=== PATIENT | female | born 1965 | race American Indian/Alaskan Native ===

== ENCOUNTER 2020-10-11 19:23 | Emergency (ER) | payer OTHER ==
[2020-10-11 20:11] VITALS: BP 161/95
--- NOTE | 2020-10-11 20:34 | Emergency Department Report ---
ED ENT HPI - General Chief complaint: Earache Stated complaint: LT EAR/NECK PAIN Time Seen by Provider: 10/11/20 20:29 Source: patient Mode of arrival: Ambulatory Limitations: No Limitations - History of Present Illness Initial comments: Patient is a 55-year-old female presents emergency room with onset of left-sided ear pain that began 2 days ago. She states it is draining and has itching and pain. She states that she went to urgent care 2 days ago and was diagnosed with otitis externa and placed on ofloxacin. She states that she has been using the drops as prescribed with no relief of her symptoms. She denies any recent swimming. She denies anything getting into the ear. She denies any fever, nausea, vomiting, diarrhea, cough, shortness of breath, sore throat. Past medical history of hypertension. Allergy to erythromycin. - Related Data Previous Rx's Medication Instructions Recorded Last Taken Type Amoxicillin/Potassium Clav 1 each PO BID 10 Days #20 tablet 10/11/20 Unknown Rx [Augmentin 875-125 Tablet] Ciprofloxacin HCl/Dexameth 3 drops AU BID 10 Days #1 bottle 10/11/20 Unknown Rx [Ciprodex Otic Suspension] Allergies Allergy/AdvReac Type Severity Reaction Status Date / Time erythromycin base Allergy Anaphylaxis Verified 10/11/20 20:08 ED Dental HPI - General Chief complaint: Earache Stated complaint: LT EAR/NECK PAIN Time Seen by Provider: 10/11/20 20:29 Source: patient Mode of arrival: Ambulatory Limitations: No Limitations - Related Data Previous Rx's Medication Instructions Recorded Last Taken Type Amoxicillin/Potassium Clav 1 each PO BID 10 Days #20 tablet 10/11/20 Unknown Rx [Augmentin 875-125 Tablet] Ciprofloxacin HCl/Dexameth 3 drops AU BID 10 Days #1 bottle 10/11/20 Unknown Rx [Ciprodex Otic Suspension] Allergies Allergy/AdvReac Type Severity Reaction Status Date / Time erythromycin base Allergy Anaphylaxis Verified 10/11/20 20:08 ED Review of Systems ROS: Stated complaint: LT EAR/NECK PAIN Other details as noted in HPI Comment: All other systems reviewed and negative ED Past Medical Hx - Past Medical History Hx Hypertension: Yes Additional medical history: hypothyroid - Surgical History Past Surgical History?: Yes Additional Surgical History: - Social History Smoking Status: Never Smoker Substance Use Type: Alcohol - Medications Home Medications: Home Medications Medication Instructions Recorded Confirmed Last Taken Type Amoxicillin/Potassium Clav 1 each PO BID 10 Days #20 tablet 10/11/20 Unknown Rx [Augmentin 875-125 Tablet] Ciprofloxacin HCl/Dexameth 3 drops AU BID 10 Days #1 bottle 10/11/20 Unknown Rx [Ciprodex Otic Suspension] ED Physical Exam - General Limitations: No Limitations General appearance: alert, in no apparent distress - Head Head exam: Present: atraumatic, normocephalic - Eye Eye exam: Present: normal appearance - ENT ENT exam: Present: mucous membranes moist, other (right ear canal appears to be scaling but no drainage present, right TM is normal, left canal is erythematous, scaling with small amount of drainage, left TM is normal, no TM perforations, no mastoid ttp bilaterally) ED Course Vital Signs 10/11/20 20:08 Temperature 98.3 F Pulse Rate 80 Respiratory 18 Rate Blood Pressure 161/95 O2 Sat by Pulse 98 Oximetry ED Medical Decision Making - Medical Decision Making Patient is a 55-year-old female presents emergency room with onset of left-sided ear pain that began 2 days ago. She states it is draining and has itching and pain. She states that she went to urgent care 2 days ago and was diagnosed with otitis externa and placed on ofloxacin. She states that she has been using the drops as prescribed with no relief of her symptoms. She denies any recent swimming. She denies anything getting into the ear. She denies any fever, nausea, vomiting, diarrhea, cough, shortness of breath, sore throat. Past medical history of hypertension. Allergy to erythromycin. Vitals are stable. On exam:right ear canal appears to be scaling but no drainage present, right TM is normal, left canal is erythematous, scaling with small amount of drainage, left TM is normal, no TM perforations, no mastoid ttp bilaterally. Examination appears consistent with left-sided otitis externa with possible early right- sided otitis externa. Patient has already been on drops for 2 days without improvement of symptoms. Patient will be placed on antibiotic drops and oral antibiotics. Patient be referred to ENT. Advised patient Please use medication as prescribed. Please stop using other medication. Follow-up with a grinder set up operator gear tool. Return to emergency room for any new or worsening symptoms. Critical care attestation.: If time is entered above; I have spent that time in minutes in the direct care of this critically ill patient, excluding procedure time. ED Disposition Clinical Impression: Otitis externa Qualifiers: Otitis externa type: unspecified type Chronicity: acute Laterality: left Qualified Code(s): H60.502 - Unspecified acute noninfective otitis externa, left ear Disposition: - TO HOME OR SELFCARE Is pt being admited?: No Does the pt Need Aspirin: No Condition: Stable Instructions: Otitis Externa, [id number] Additional Instructions: Please use medication as prescribed. Please stop using other medication. Follow-up with a grinder set up operator gear tool. Return to emergency room for any new or worsening symptoms. Prescriptions: Amoxicillin/Potassium Clav [Augmentin 875-125 Tablet] 1 each PO BID 10 Days #20 tablet Ciprofloxacin HCl/Dexameth [Ciprodex Otic Suspension] 3 drops AU BID 10 Days #1 bottle Referrals: YUNIER GILL MD [Staff Physician] - 2-3 Days Time of Disposition: 20:35 Print Language: [id number]
== END 2020-10-11 21:07 | disposition home or self-care (01) ==
LOC: ED 19:23
DX: H60.92 Unspecified otitis externa, left ear (principal); I10 Essential (primary) hypertension; Z98.890 Other specified postprocedural states; Z79.899 Other long term (current) drug therapy; Z88.1 Allergy status to other antibiotic agents
CPT/HCPCS: 99281